=== PATIENT | female | born 1955 | race Caucasian/White ===

== ENCOUNTER 2019-02-02 16:59 | Emergency (ER) | payer SELFPAY ==
[~2019-02-02] VITALS: Ht 157.5 cm; Wt 66.4 kg
[2019-02-02 17:05] VITALS: BP 173/93
--- NOTE | 2019-02-02 17:13 | NUR ---
63 Y FEMALE BIB DAUGHTER C/O HIGH BP. WAS SEEN AT [facility] FOR FOR ELEVATED BP AND RT SHOULDER PAIN 05/17, RADIATING TO HER RT NECK W/ HEAD ACHE, NAUSEA, AND DIZZINESS TODAY. BP 173/93. STATES SHE HAS NOT BEEN DIAGNOSED WITH HTN AND DOES NOT TAKE ANY MEDICATIONS. AA0X4. BED IS DOWN, LOCKED, BED RAIL X 1, ERMD TO SEE PT. HX; DENIES
--- NOTE | 2019-02-02 17:15 | NUR ---
PT AMB TO RESTROOM WITH STEADY GAIT
--- NOTE | 2019-02-02 17:38 | NUR ---
DR SOTO AT BEDSIDE
[2019-02-02] MEDS ORDERED: cloNIDine 0.1 MG TAB PO ONE (17:45)
--- NOTE | 2019-02-02 17:54 | NUR ---
LAB AT BEDSIDE
--- NOTE | 2019-02-02 17:57 | NUR ---
CLODIPINE PO ADMINISTERED. BP 182/77
[2019-02-02 18:00] LABS: BASOPHILS % (AUTO) 0.5 % (0.0-2.0); EOSINOPHILS # (AUTO) 0.1 K/uL (0-0.4); EOSINOPHILS % (AUTO) 2.5 % (0.0-4.0); HEMATOCRIT 34.7 % (36-48); HEMOGLOBIN 11.7 g/dL (12.0-16.0); LYMPHOCYTES # (AUTO) 2.3 K/uL (2.5-16.5); LYMPHOCYTES % (AUTO) 48.4 % (20.5-51.1); MEAN CORPUSCULAR HEMOGLOBIN 29 pg (27-31); MEAN CORPUSCULAR HGB CONC 34 g/dL (33-37); MEAN CORPUSCULAR VOLUME 86.1 fL (80-94); MONOCYTES # (AUTO) 0.3 K/uL (0.8-1.0); MONOCYTES % (AUTO) 6.9 % (1.7-9.3); NEUTROPHILS % (AUTO) 41.7 % (42.2-75.2); PLATELET COUNT (AUTO) 213 K/uL (140-450); RED BLOOD CELL COUNT(AUTO) 4.03 MIL/uL (4.20-5.40); RED CELL DISTRIBUTION WIDTH 12.8 % (11.6-13.7); WHITE BLOOD COUNT (AUTO) 4.8 K/uL (4.8-10.8)
--- NOTE | 2019-02-02 18:05 | NUR ---
PT BEING TAKEN TO CT VIA WHEELCHAIR
--- NOTE | 2019-02-02 18:12 | NUR ---
PT RETURNED FROM CT. AA0X4.
--- NOTE | 2019-02-02 18:16 | NUR ---
BP 176/69
[2019-02-02 18:22] LABS: ALBUMIN 3.9 g/dL (3.4-5.0); ANION GAP 10.1 (8-16); CARBON DIOXIDE 27.8 mmol/L (21-32); CREATININE 0.6 mg/dL (0.6-1.3); POTASSIUM 3.9 mmol/L (3.5-5.1); TOTAL BILIRUBIN 0.3 mg/dL (0.0-1.0)
--- NOTE | 2019-02-02 18:49 | NUR ---
BP 151/80
--- NOTE | 2019-02-02 18:50 | NUR ---
DR SOTO RE-EVALUATING PT
[2019-02-02 18:56] VITALS: BP 141/82
--- NOTE | 2019-02-02 18:56 | NUR ---
Patient discharged with v/s stable. Written and verbal after care instructions given and explained. Patient alert, oriented and verbalized understanding of instructions. Ambulatory with steady gait. All questions addressed prior to discharge. ID band removed. Patient advised to follow up with PMD. Rx of lisinopril given. Patient educated on indication of medication including possible reaction and side effects. Opportunity to ask questions provided and answered.
== END 2019-02-02 18:56 | disposition home or self-care (01) ==
LOC: MED 16:59
DX: I10 Essential (primary) hypertension (principal); Z90.49 Acquired absence of other specified parts of digestive tract
CPT/HCPCS: 36415; 70450; 80053; 85025; 93005; 99284

== ENCOUNTER 2019-08-31 07:10 | Emergency (ER) | payer OTHER ==
[~2019-08-31] VITALS: Ht 160 cm; Wt 70.3 kg
[2019-08-31 07:17] VITALS: BP 143/78
--- NOTE | 2019-08-31 07:21 | NUR ---
pt taken to ER bed 11
--- NOTE | 2019-08-31 07:24 | NUR ---
64/F C/O COUGH, SORE THROAT X 1 WEEK AND WORSENING OVER LAST 3 DAYS. DENIES FEVER, N/V. VSS; BEDRAILS UP X 1;ERMD TO EVALUATE PT. HX- HTN
--- NOTE | 2019-08-31 07:26 | NUR ---
DR. SHELLEY EVALUATING PT AT BEDSIDE.
[2019-08-31] MEDS ORDERED: cefTRIAXone 1,000 MG in LIDOCAINE MPF 1% 2.1 ML IM ONE (07:30)
[2019-08-31] MEDS ORDERED: hydrOXYzine HCL 25 MG TAB PO ONE (07:30)
[2019-08-31] MEDS ORDERED: DEXAMETHASONE 10 MG/ML VIAL IM ONE (07:30)
[2019-08-31] MEDS ORDERED: LIDOCAINE MPF 1% 5 ML ONE (07:36)
--- NOTE | 2019-08-31 07:56 | NUR ---
Patient discharged with v/s stable. Written and verbal after care instructions given and explained. Patient alert, oriented and verbalized understanding of instructions. Ambulatory with steady gait. All questions addressed prior to discharge. ID band removed. Patient advised to follow up with PMD. Rx of prednisone, promethazine DM, azithromycin given. Patient educated on indication of medication including possible reaction and side effects. Opportunity to ask questions provided and answered.
[2019-08-31 07:57] VITALS: BP 143/78
== END 2019-08-31 07:56 | disposition home or self-care (01) ==
LOC: MED 07:10
DX: J06.9 Acute upper respiratory infection, unspecified (principal); I10 Essential (primary) hypertension
CPT/HCPCS: 96372; 99283; J1100; J2001

== ENCOUNTER 2020-04-12 17:04 | Emergency (ER) | payer OTHER, SELFPAY ==
[~2020-04-12] VITALS: Ht 139.7 cm; Wt 70.8 kg
[2020-04-12 17:10] VITALS: BP 141/87
[2020-04-12 17:41] VITALS: BP 141/87
== END 2020-04-12 17:42 | disposition home or self-care (01) ==
LOC: MED 17:04
DX: B34.9 Viral infection, unspecified (principal); I10 Essential (primary) hypertension; Z20.828 Contact with and (suspected) exposure to other viral communicable diseases
CPT/HCPCS: 99283; U0003

== ENCOUNTER 2020-08-07 11:12 | Emergency (ER) | payer OTHER, SELFPAY ==
[~2020-08-07] VITALS: Ht 162.6 cm; Wt 70.3 kg
[2020-08-07 11:32] VITALS: BP 152/87
--- NOTE | 2020-08-07 11:36 | NUR ---
65/F BIB C/O FEVER,COUGH, NIXON 7/10 X 1 WEEK. COVID TESTED 3 MONTHS AGO: NEGATIVE. ORAL TEMP 102.4 MED HX: ARTHRITIS
[2020-08-07] MEDS ORDERED: ACETAMINOPHEN EXTRA STRENGTH 500 MG TAB PO ONE (11:40)
[2020-08-07] MEDS ORDERED: ACETAMINOPHEN EXTRA STRENGTH 500 MG TAB ONE (11:40)
--- NOTE | 2020-08-07 11:49 | NUR ---
COVID SWAB DONE.
[2020-08-07 12:50] VITALS: BP 131/78
--- NOTE | 2020-08-08 19:03 | NUR ---
Covid results received from lab. Results = POSITIVE. Hard copy requested from lab and placed in infection controls mailbox.
== END 2020-08-07 12:50 | disposition home or self-care (01) ==
LOC: MED 11:12
DX: U07.1 COVID-19 (principal); I10 Essential (primary) hypertension
CPT/HCPCS: 71045; 99284; U0003

== ENCOUNTER 2021-01-31 20:14 | Emergency (ER) | payer OTHER ==
[~2021-01-31] VITALS: Ht 157.5 cm; Wt 73.9 kg
[2021-01-31 20:20] VITALS: BP 163/87
--- NOTE | 2021-01-31 20:30 | NUR ---
PT. IS A 65 Y/O FEMALE THAT CAME INTO ED WITH C/O OF LEFT LEG PAIN AND UPPER THIGH PAIN, ALONG WITH DIZZINESS. SHE STATES THAT THE PAIN STARTED 8 DAYS AGO AND SOMETIMES HER LEFT PINKY FINGER AND LEFT RING FINGER WOULD CRAMP. SHE ALSO STATES THAT SHE HAS NAUSEA, BUT DENIES FEVER AND DIARRHEA. SKIN IS PINK/WARM/DRY; AAOX4 WITH EVEN AND STEADY GAIT; HR EVEN AND REGULAR; PT DENIES ANY FEVER, CP, SOB, OR COUGH AT THIS TIME; VSS; PATIENT POSITIONED FOR COMFORT; HOB ELEVATED; BEDRAILS UP X2; BED DOWN. ER MD MADE AWARE OF PT STATUS. PMH: HYPERTENSION ALLERGIES: NKA
[2021-01-31 21:33] LABS: BASOPHILS % (AUTO) 0.3 % (0.0-2.0); EOSINOPHILS # (AUTO) 0.1 K/uL (0-0.4); EOSINOPHILS % (AUTO) 0.8 % (0.0-4.0); HEMATOCRIT 35.2 % (36-48); LYMPHOCYTES # (AUTO) 1.8 K/uL (2.5-16.5); LYMPHOCYTES % (AUTO) 24.6 % (20.5-51.1); MEAN CORPUSCULAR HEMOGLOBIN 30 pg (27-31); MEAN CORPUSCULAR HGB CONC 34 g/dL (33-37); MEAN CORPUSCULAR VOLUME 88.5 fL (80-94); MONOCYTES # (AUTO) 0.4 K/uL (0.8-1.0); MONOCYTES % (AUTO) 5.2 % (1.7-9.3); NEUTROPHILS # (AUTO) 5.1 K/uL (1.8-7.7); NEUTROPHILS % (AUTO) 69.1 % (42.2-75.2); PLATELET COUNT (AUTO) 274 K/uL (140-450); RED BLOOD CELL COUNT(AUTO) 3.98 MIL/uL (4.20-5.40); RED CELL DISTRIBUTION WIDTH 14.4 % (11.6-13.7); WHITE BLOOD COUNT (AUTO) 7.3 K/uL (4.8-10.8)
[2021-01-31 21:36] LABS: APPEARANCE,URINE CLEAR (CLEAR); BILIRUBIN,URINE NEGATIVE (NEGATIVE); BLOOD, URINE 1+ (NEGATIVE); LEUKOCYTE ESTERASE ,URINE NEGATIVE (NEGATIVE); NITRITE, URINE NEGATIVE (NEGATIVE); UGLUCOSE NEGATIVE (NEGATIVE)
[2021-01-31 21:48] LABS: ALBUMIN 3.8 g/dL (3.4-5.0); ANION GAP 10.6 (8-16); CARBON DIOXIDE 30.1 mmol/L (21-32); CREATININE 0.6 mg/dL (0.6-1.3); POTASSIUM 4.7 mmol/L (3.5-5.1); TOTAL BILIRUBIN 0.3 mg/dL (0.0-1.0)
--- NOTE | 2021-01-31 21:48 | NUR ---
DR GONZALEZ AT BEDSIDE FOR EXAM
[2021-01-31 21:55] LABS: RBC,URINE 0-5 /HPF (0-5); WBC,URINE 0-5 /HPF (0-5)
[2021-01-31 21:56] LABS: COLOR,URINE STRAW (YELLOW)
[2021-01-31] MEDS ORDERED: MECL-303 PO (22:09)
[2021-01-31] MEDS ORDERED: ONDA8TAB87 PO (22:09)
[2021-01-31] MEDS ORDERED: LISI40TA12 PO (22:09)
[2021-01-31 22:15] VITALS: BP 163/87
--- NOTE | 2021-01-31 22:15 | NUR ---
Patient discharged with v/s stable. Written and verbal after care instructions given and explained. Patient alert, oriented and verbalized understanding of instructions. Ambulatory with steady gait. All questions addressed prior to discharge. ID band removed. Patient advised to follow up with PMD. Rx of ZESTRIL, ANTIVERT, ONDASETRON given. Patient educated on indication of medication including possible reaction and side effects. Opportunity to ask questions provided and answered.
== END 2021-01-31 22:15 | disposition home or self-care (01) ==
LOC: MED 20:14
DX: R42 Dizziness and giddiness (principal); I10 Essential (primary) hypertension; R11.0 Nausea; Z90.49 Acquired absence of other specified parts of digestive tract
CPT/HCPCS: 36415; 80053; 81001; 81025; 85025; 99283

== ENCOUNTER 2022-04-13 18:51 | Emergency (ER) | payer OTHER ==
[~2022-04-13] VITALS: Ht 157.5 cm; Wt 72.1 kg
[~2022-04-13 18:51] MED LIST: LISI40TA12 PO; MECL-303 PO; ONDA8TAB87 PO
[2022-04-13 19:05] VITALS: BP 130/53
--- NOTE | 2022-04-13 19:11 | NUR ---
66 y/o female bibs from home, c/o right hand itching and pain near 4th and 5th digit since yesterday. pt states she touched something and started having itching with no relief since yesterday. denies trauma or overexertion. A/OX4, UNLABORED BREATHING, AMBULATORY. pmh: denies nka med: aspirin
--- NOTE | 2022-04-13 19:20 | NUR ---
Audi ortiz in [facility] - 04/13/22 at 1930 by [email or web address] ERMD AT BEDSIDE EXAMINING PT
--- NOTE | 2022-04-13 19:21 | NUR ---
Dr. Call examining patient.
[2022-04-13] MEDS ORDERED: DIPH25TA53 PO (19:27)
[2022-04-13] MEDS ORDERED: KEN.1O TP (19:27)
[2022-04-13] MEDS ORDERED: IBUPROFEN 600 MG TAB PO ONE (19:35)
[2022-04-13 19:42] VITALS: BP 128/60
--- NOTE | 2022-04-13 19:44 | NUR ---
Patient discharged with v/s stable. Written and verbal after care instructions given and explained. Patient alert, oriented and verbalized understanding of instructions. Ambulatory with steady gait. All questions addressed prior to discharge. ID band removed. Patient advised to follow up with PMD. Rx of BENADRYL AND KENALOG 0.1% given. Patient educated on indication of medication including possible reaction and side effects. Opportunity to ask questions provided and answered. VSS, A/OX4, UNLABORED BREATHING, AMBULATORY, AND CALM DEMEANOR.
== END 2022-04-13 19:44 | disposition home or self-care (01) ==
LOC: MED 18:51
DX: S60.561A Insect bite (nonvenomous) of right hand, initial encounter (principal); L08.9 Local infection of the skin and subcutaneous tissue, unspecified; I10 Essential (primary) hypertension; Z79.899 Other long term (current) drug therapy; W57.XXXA Bitten or stung by nonvenomous insect and other nonvenomous arthropods, initial encounter; Y93.89 Activity, other specified; Y92.89 Other specified places as the place of occurrence of the external cause; Y99.8 Other external cause status
CPT/HCPCS: 99283; Q0163

== ENCOUNTER 2022-11-10 10:20 | Emergency (ER) | payer OTHER ==
[~2022-11-10] VITALS: Ht 149.9 cm; Wt 72.1 kg
[~2022-11-10 10:20] MED LIST changes: +DIPH25TA53 PO; +KEN.1O TP
[2022-11-10 10:32] VITALS: BP 148/80
--- NOTE | 2022-11-10 10:36 | NUR ---
PT AMBULATED TO ER BED 2 Addendum: 11/10/22 at 1036 by [email or web address] BED 3*
--- NOTE | 2022-11-10 10:48 | NUR ---
67 Y/O FEMALE BIB SELF C/O DRY COUGH, NIXON, LOSS OF TASTE IN THE MORNING, CHILLS, BODY ACHES FOR 2 WEEKS. DENIES ANY FEVERS, NVD, DENIES ANY SOB PMH: HTN NKA MED: DENIES
--- NOTE | 2022-11-10 11:26 | NUR ---
X-Ray at bedside.
[2022-11-10] MEDS ORDERED: PROM118S5 PO (11:50)
[2022-11-10] MEDS ORDERED: NAPR-1704 PO (11:50)
--- NOTE | 2022-11-10 12:10 | NUR ---
SWAB HANDED AND WALKED TO LAB
--- NOTE | 2022-11-10 12:21 | NUR ---
Patient discharged with v/s stable. Written and verbal after care instructions ABOUT VIRAL ILLNESS given and explained. Patient alert, oriented and verbalized understanding of instructions. Ambulatory with steady gait. All questions addressed prior to discharge. ID band removed. Patient advised to follow up with PMD. Rx of PROMETHAZINE DM, NAPROXEN given. Patient educated on indication of medication including possible reaction and side effects. Opportunity to ask questions provided and answered.
== END 2022-11-10 12:21 | disposition home or self-care (01) ==
LOC: MED 10:20
DX: B34.9 Viral infection, unspecified (principal); Z20.822 Contact with and (suspected) exposure to COVID-19; I10 Essential (primary) hypertension; Z79.899 Other long term (current) drug therapy
CPT/HCPCS: 71045; 87426; 99284; Q0092